=== PATIENT | male | born 1965 | race Caucasian/White ===

== ENCOUNTER 2020-02-10 13:54 | Inpatient (IN) ==
[2020-02-10 14:42] LABS: Basophils % 0.4 %; Eosinophils % 0.2 %; Hematocrit 44.4 % (37.5-50.1); Hemoglobin 15.1 g/dL (12.9-16.9); Immature Granulocytes % 0.4 % (0-4); Lymphocytes # 0.5 K/mcL (0.6-4.6); Lymphocytes % 9.7 %; Mean Corpuscular Hemoglobin 30.4 pg (28.0-33.3); Mean Corpuscular Volume 89.3 fL (83.0-100.0); Mean Platelet Volume 9.7 fL (9.4-12.4); Monocytes # 0.4 K/mcL (0.0-1.3); Monocytes % 7.4 %; Neutrophils # 4.5 K/mcL (1.6-8.9); Platelet Count 167 K/mcL (140-400); Red Blood Count 4.97 M/mcL (4.19-5.50); Red Cell Distribution Width 13.3 % (11.5-14.5); Segmented Neutrophils % 81.9 %; White Blood Count 5.5 K/mcL (4.3-11.1)
[2020-02-10 14:48] LABS: INR 1.4; Prothrombin Time 15.3 Seconds (9.4-12.1)
[2020-02-10 14:50] LABS: Activated Partial Thrombo Time 27.3 Seconds (26.0-36.0)
[2020-02-10 14:58] LABS: Alanine Aminotransferase 14 Units/L (7-52); Albumin 3.3 g/dL (3.5-5.7); Alkaline Phosphatase 62 Units/L (34-104); Aspartate Amino Transferase 27 Units/L (13-39); BUN/Creatinine Ratio 14 (6-26); Bilirubin,Total 0.6 mg/dL (0.3-1.0); Blood Urea Nitrogen 19 mg/dL (6-20); Calcium 8.3 mg/dL (8.6-10.3); Carbon Dioxide 24 mEq/L (23-29); Chloride 94 mEq/L (98-107); Globulin 3.4 g/dL (2.4-3.5); Glucose 97 mg/dL (70-105); Osmolality,Calculated 264 (280-300); Potassium 3.4 mEq/L (3.5-5.1); Sodium 126 mEq/L (136-145); Total Protein 6.7 g/dL (6.4-8.9); eGFR For African Americans > 60 (> 60); eGFR For Non-African Americans 57 (> 60)
[2020-02-10] MEDS ORDERED: Isovue-370 500 ML BOTTLE IVP ONE (15:13)
[2020-02-10] MEDS ORDERED: 0.9 % Sodium Chloride 1,000 ML IV ONE (15:17)
[2020-02-10] MEDS: levoFLOXacin 750 MG/150 ML 750 MG/150 ML BAG IVPB SCH (18:36)
[2020-02-10] MEDS: 0.9 % Sodium Chloride 1,000 ML IVC SCH (18:41)
[2020-02-10] MEDS: Dexamethasone 4 MG/ML VIAL IVP SCH (18:43)
[2020-02-10] MEDS: Benzonatate 100 MG CAPSULE PO PRN (19:52)
[2020-02-10] MEDS: Ipratropium/Albuterol Neb 3 ML IH SCH ×3 (20:55→23:28)
[2020-02-11] MEDS: Ipratropium/Albuterol Neb 3 ML IH SCH ×4 (04:27→16:08)
[2020-02-11 05:09] LABS: Hematocrit 41.2 % (37.5-50.1); Hemoglobin 13.8 g/dL (12.9-16.9); Immature Granulocytes % 0.6 % (0-4); Lymphocytes # 0.4 K/mcL (0.6-4.6); Lymphocytes % 13.6 %; Mean Corpuscular HGB Conc 33.5 g/dL (31.6-35.5); Mean Corpuscular Hemoglobin 30.5 pg (28.0-33.3); Mean Corpuscular Volume 91.2 fL (83.0-100.0); Monocytes # 0.4 K/mcL (0.0-1.3); Monocytes % 11.8 %; Neutrophils # 2.4 K/mcL (1.6-8.9); Platelet Count 162 K/mcL (140-400); Red Blood Count 4.52 M/mcL (4.19-5.50); Red Cell Distribution Width 13.4 % (11.5-14.5); White Blood Count 3.2 K/mcL (4.3-11.1)
[2020-02-11 05:29] LABS: BUN/Creatinine Ratio 15 (6-26); Blood Urea Nitrogen 19 mg/dL (6-20); Calcium 8.3 mg/dL (8.6-10.3); Carbon Dioxide 26 mEq/L (23-29); Chloride 100 mEq/L (98-107); Glucose 123 mg/dL (70-105); Osmolality,Calculated 280 (280-300); Potassium 4.7 mEq/L (3.5-5.1); Sodium 133 mEq/L (136-145); eGFR For African Americans > 60 (> 60); eGFR For Non-African Americans 58 (> 60)
[2020-02-11] MEDS ORDERED: *HR* Enoxaparin 40 MG/0.4 ML SYRINGE SQ SCH (06:00)
[2020-02-11] MEDS: 0.9 % Sodium Chloride 1,000 ML IVC SCH (08:43)
[2020-02-11] MEDS: Dexamethasone 4 MG/ML VIAL IVP SCH (08:44)
[2020-02-11] MEDS: Benzonatate 100 MG CAPSULE PO PRN ×2 (10:41→18:49)
[2020-02-11 13:06] VITALS: BP 127/88
[2020-02-11 13:32] LABS: C-Reactive Protein 51 mg/L (Less than 10); Ferritin 1083 ng/mL (20-250)
[2020-02-11] MEDS: levoFLOXacin 750 MG/150 ML 750 MG/150 ML BAG IVPB SCH (17:10)
== END 2020-02-11 19:15 | disposition home or self-care (01) | DRG 177 ==
LOC: EMEROOGRE 13:54 → INPGRE 13:54
PROVIDERS: ADMIT Family Medicine; ATTEND Family Medicine